=== PATIENT | female | born 1975 | race Hispanic/Latino ===

== ENCOUNTER 2024-12-25 14:24 | Emergency (ER) | payer OTHER, SELFPAY ==
[2024-12-25 14:28] VITALS: BP 159/82
--- NOTE | 2024-12-25 14:52 | ED.GENMED ---
History of Present Illness
<Martha Muller PA-C - Last Filed: 12/25/24 15:33>
General
Chief Complaint: Musculo-Skeletal Complaint
Source: patient
Exam Limitations: none
Time Seen by Provider: 12/25/24 14:41
History of Present Illness
History of Present Illness:
49yoF with a history of diabetes presenting for evaluation of left ankle pain. Patient was walking down the steps and the lights were off. She missed the last step and rolled her ankle about an hour ago. She is presenting with pain in her lateral
ankle. No paresthesias. No other injuries reported. No prior injuries to the left ankle.
Phy Exam
<Martha Muller PA-C - Last Filed: 12/25/24 15:33>
General Physical Exam
General Presentation: well appearing and no apparent distress
General Skin: warm and dry
General Habitus: normal
General Mental: alert
ENT Exam
ENT Exam: normocephalic
Neurological Exam
Neurological Exam: alert
[place] Coma Scale
Eye Opening: Spontaneous
Verbal Response: Oriented
Motor Response: Obeys Commands
GCS Total Score: 15
Musculoskeletal Exam
Musculoskeletal Exam: other (L ankle: No deformity noted. +Tenderness to lateral malleolus and 5th metatarsal. ROM decreased 2/2 pain. No tenderness at proximal fibula. 2+ DP pulse and sensation intact.)
Skin Exam
Skin Exam: normal color and warm/dry
Psychiatric Exam
Psychiatric Exam: normal mood/affect
<Tylor Cardenas MD - Last Filed: 12/25/24 17:31>
[place] Coma Scale
GCS Total Score: 15
Course
<Martha Muller PA-C - Last Filed: 12/25/24 15:33>
Orders/Labs/Results
Orders:
Orders
12/25/24 14:31
Ankle, left 3 view CR [CR Ankle - Left Min 3 Views ] Urgent
Comment:
Reason For Exam: fall
12/25/24 14:52
Ibuprofen [Motrin] 600 mg PO NOW STA
12/25/24 14:56
Crutches-Treatment ONCE
Ortho Boot Left- Treatment ONCE
Short or tall?: Short
Vital Signs
Initial and Last Documented VS:
Initial Vital Signs
Temp Pulse Resp BP Pulse Ox
36.6 C 69 16 159/82 98
12/25/24 14:28 12/25/24 14:28 12/25/24 14:28 12/25/24 14:28 12/25/24 14:28
Last Documented Vital Signs
Temp Pulse Resp BP Pulse Ox
36.6 C 69 16 159/82 98
12/25/24 14:28 12/25/24 14:28 12/25/24 14:28 12/25/24 14:28 12/25/24 14:28
<Tylor Cardenas MD - Last Filed: 12/25/24 17:31>
Orders/Labs/Results
Orders:
Orders
12/25/24 14:31
Ankle, left 3 view CR [CR Ankle - Left Min 3 Views ] Urgent
Comment:
Reason For Exam: fall
12/25/24 14:52
Ibuprofen [Motrin] 600 mg PO NOW STA
12/25/24 14:56
Crutches-Treatment ONCE
Ortho Boot Left- Treatment ONCE
Short or tall?: Short
Vital Signs
Initial and Last Documented VS:
Initial Vital Signs
Temp Pulse Resp BP Pulse Ox
36.6 C 69 16 159/82 98
12/25/24 14:28 12/25/24 14:28 12/25/24 14:28 12/25/24 14:28 12/25/24 14:28
Last Documented Vital Signs
Temp Pulse Resp BP Pulse Ox
36.6 C 69 16 159/82 98
12/25/24 14:28 12/25/24 14:28 12/25/24 14:28 12/25/24 14:28 12/25/24 14:28
<Martha Muller PA-C - Last Filed: 12/25/24 15:33>
MDM/Problems Addressed
Differential Diagnosis Includes:
49yoF here with L ankle pain after an injury. No deformity noted. There is tenderness to lateral ankle and foot. LLE is neurovascularly intact. Differential diagnosis: sprain vs. fracture
X-rays of ankle obtained which reveal a nondisplaced fracture at the base of the 5th metatarsal. She was placed in a walking boot and crutches provided. Advised f/u with orthopedics for further care.
<Martha Muller PA-C - Last Filed: 12/25/24 15:33>
*Critical Care Note
Total Time (30-74mins, 75-104mins- exclusive of procedures): Not Applicable
ED Attending Note
<Martha Muller PA-C - Last Filed: 12/25/24 15:33>
-
Portions of this chart may have been created with voice recognition software.� Occasional wrong word or��sound alike� substitutions may have occurred due to the inherent limitations of voice recognition software.
<Tylor Cardenas MD - Last Filed: 12/25/24 17:31>
ED Attending Note
I performed the substantive portion of visit, reviewed & personally made and approve the management plan that is documented in note by myself or VIDAL.: Yes
ED Attending Note:
I have seen and evaluated the patient with a [id number] encounter. I have spoken to the advance practicer provider and involved in the medical history, the physical exam, medical decision making.
Evaluation and management service: agree unless noted differently below.
Results interpretation: agree unless noted differently below.
Focused HPI: 49-year-old female presented with left foot/ankle injury.
Medical Decision Making: X-ray showed fracture nondisplaced base of the fifth metacarpal metatarsal. Placed in Ortho boot, discharged with Ortho referral. Patient did call back after discharge said that she could not manage pain with Tylenol and
NSAIDs�she was written for short supply of oxycodone for pain control pending PCP follow-up. PDMP queried no red flags.
Discharge Plan
Departure
Patient Disposition: Home (Routine Discharge)
Date of Disposition: 12/25/24
Time of Disposition: 15:01
Patient with high blood pressure during this ER visit?: Yes
Discharge Problem:
Fracture of fifth metatarsal bone of left foot
Instructions: Foot Fracture ED
Prescriptions:
New
oxycodone 5 mg tablet
5 mg PO Q8H PRN (Reason: Pain) Qty: 10 0RF
Referrals:
David Bunn MD [Active] -
Stand Alone Forms: Return to Work
Activity Restrictions/Additional Instructions:
Wear boot and use crutches. Take Tylenol and ibuprofen as needed for pain.
Please call tomorrow to schedule a follow-up with orthopedics.
Interventions
Interventions:
*Risk Screen - Suicide Last Done: 12/25/24 14:28
*Neglect/Abuse Screening Last Done: 12/25/24 14:28
*Nursing Disposition Last Done: 12/25/24 16:10
ED-Musculoskeletal Assessment Last Done: 12/25/24 16:12
Discharge Date and Time
Discharge Date/Time: 12/25/24 16:11
Print Language: ALGERIAN
[2024-12-25] MEDS: MOTRIN 600 MG PO (15:05)
== END 2024-12-25 16:11 | disposition home or self-care (01) ==
LOC: EMR 14:24
PROVIDERS: EMERGENCY PHYSICIAN Emergency Medicine
DX: S92.355A Nondisplaced fracture of fifth metatarsal bone, left foot, initial encounter for closed fracture (principal); X50.1XXA Overexertion from prolonged static or awkward postures, initial encounter; E11.9 Type 2 diabetes mellitus without complications; Y93.01 Activity, walking, marching and hiking
CPT/HCPCS: 99283; 73610